=== PATIENT | female | born 1970 | race Caucasian/White ===

== ENCOUNTER 2022-08-17 20:25 | Emergency (ER) | payer MEDICARE, MEDICAID, SELFPAY ==
[2022-08-17 20:27] VITALS: PULSE 74; RESP 15; TEMP 36.2; O2SAT 96
[2022-08-17 21:51] VITALS: BMI 17.3
--- NOTE | 2022-08-17 22:07 | EX.ED.DYSGE1 ---
HPI History of Present Illness Chief Complaint: Weakness Detail of Chief Complaint: Weakness, poor p.o. intake Informant: patient and family Onset/Context/Timing Onset: Days Context: Gradual Onset Timing: Continuous Quality: Generalized weakness Location: Staying with daughter Current Severity: Moderate Maximum Severity: Moderate Worsened by: History of liver failure due to myelodysplastic syndrome. Relieved by: Nothing Associated Symptoms Associated Symptoms: Nausea, generalized weakness, weight loss Narrative Narrative: Patient is a 51-year-old woman with history of liver failure with jaundice due to MDS. She has never been seen at [facility]. There are no written reports available for any recent admission at [facility] or [place]. Able to obtain blood work. That was performed at [facility]. H&H on August 11 was 8.0 and 23.9. White count was 3.5. Platelet count was 376,000. Patient does admit to bruising easily. Daughter had to supplement history. Difficult to obtain much. Daughter states she has not voiced any complaint of headache, chest pain, shortness of breath or urinary symptoms. There is no evidence of recent admission using [facility]. Prior similar symptoms: Yes Recent Illness/Hospitalization: Yes PFSH PFSH Medical History no medical history no medical history (Documented in the HPI) Allergy/AdvReac Type Severity Reaction Status Date / Time ibuprofen [From Motrin] AdvReac Vomiting Verified 08/17/22 20:31 Social History (Updated 08/17/22 @ 22:[address] Clarence Oh MD) household members: none housing: other details: Presently staying with daughter who lives in [place]. Smoking Status: Former smoker details: No recent history of alcohol use ROS ROS ED Review of Systems ROS Unobtainable: due to mental status EXAM Physical Exam Const Vital Signs: 08/17/22 20:27 08/17/22 21:54 08/17/22 23:32 Temperature 97.2 F L Temperature Source Temporal Pulse Rate 74 Respiratory Rate 15 Respiratory Effort Normal Respiratory Pattern Normal Blood Pressure 90/64 Blood Pressure Mean 72 Pulse Ox 96 Oxygen Delivery Method Room Air Positive well developed and cachectic Constitutional Narrative: Patient is jaundiced. Patient does not appear well. General Appearance ED: well developed, cachectic and NAD; Negative for cyanotic, diaphoretic or pallor Nutritional Appearance: cachectic HEENT Reports dry mucous membranes HEENT Narrative: Gingiva is pale. Mouth ED: Yes dry mucous membranes Mouth: dry mucous membranes Eyes PERRL and EOMs intact bilaterally General Eye ED: Yes pale conjunctiva and scleral icterus Chest Wall inspection of chest normal and palpation of chest normal Resp normal respiratory effort and clear to auscultation bilaterally Cardio regular rate, regular rhythm, S1 normal heart sound, S2 normal heart sound and no murmurs GI non-tender and hepatosplenomegaly GI Narrative: Patient has shifting dullness and fluid wave consistent with ascites. Patient is noted to have bruising. Auscultation: hypoactive bowel sounds Back/Spine no CVA tenderness Thoracic Spine / Upper Back: Negative for thoracic spinal tenderness Lumbar Spine / Lower Back: Negative for lumbar spinal tenderness Extremity Extremity Narrative: There is bruising of the extremities. Neuro oriented x3, CN's II-XII intact bilaterally and no sensory deficits noted Neuro Narrative: Patient opens her eyes to verbal stimuli and does answer questions appropriately. Sensorium / Orientation: Negative for alert Psych Mood & Affect: depressed Skin No skin turgor normal General Skin Exam: jaundice; Negative for elasticity normal or pallor MDM MDM MDM Narrative Medical decision making narrative: Prior records are not available for review. Laboratory results from [facility] were obtained. Office visit was obtained. Problem list included renal failure, ascites, history of atrial for flutter, nonischemic cardiomyopathy, congestive heart failure, hepatocellular dysfunction, hypomagnesemia, hyponatremia, iron deficiency. There is remote history of splenic infarct. She also has portal hypertension. Patient does not appear well. Full work-up was obtained for metabolic infectious causes. CBC to evaluate if her hemoglobin is dropped significantly since she appears very pale. Because of the bruising PT/INR was obtained to assess for coagulopathy due to liver failure. Lab Data Attestation: I reviewed the patient's lab results. Lab results narrative: Comprehensive metabolic panel reveals sodium 131, potassium 5.8, chloride of 89 with a CO2 of 12 and anion gap of 30. BUN is 66 with a creatinine of 3.26. BUN to creatinine ratio is 20:1. Glucose is 64. Total bili is 9.8. AST and ALT of 535 and 236 respectively. Hemoglobin is 4.7 hematocrit of 14.7. Platelet count is 416 is in Labs: Laboratory Results - last 24 hr 08/17/22 08/17/22 08/17/22 23:16 23:16 23:16 WBC 7.3 RBC 1.54 L Hgb 4.7 L* Hct 14.7 L MCV 95.5 MCH 30.5 MCHC 32.0 RDW Std Deviation 51.7 H RDW Coeff of Anisa 15.3 H Plt Count 416 MPV 12.4 H Immature Gran % (Auto) 1.000 H Neut % (Auto) 64.5 Lymph % (Auto) 19.0 [place] % (Auto) 15.4 H Eos % (Auto) 0.0 Baso % (Auto) 0.1 Absolute Neuts (auto) 4.7 Absolute Lymphs (auto) 1.38 Nucleated RBC % 0.8 PT > 120.0 H INR > 19.5 H* Sodium 131 L Potassium 5.8 H Chloride 89 L Carbon Dioxide 12.0 L Anion Gap 30 H BUN 66 H Creatinine 3.26 H Estim Creat Clear Calc 15.82 Est GFR (MDRD) Af Amer 19 L Est GFR (MDRD) Non-Af 16 L BUN/Creatinine Ratio 20.2 H Glucose 64 L Calcium 9.0 Total Bilirubin 9.80 H AST 535 H ALT 236 H Alkaline Phosphatase 72 Total Protein 5.6 L Albumin 3.7 Globulin 1.9 L Albumin/Globulin Ratio 1.9 Urine Color Urine Clarity Urine pH Ur Specific [place] Urine Protein Urine Glucose (UA) Urine Ketones Urine Occult Blood Urine Nitrite Urine Bilirubin Urine Urobilinogen Ur Leukocyte Esterase Urine RBC Urine WBC Ur Squamous Epith Cells Amorphous Sediment Urine Bacteria Hyaline Casts Urine Mucus 08/18/22 00:20 WBC RBC Hgb Hct MCV MCH MCHC RDW Std Deviation RDW Coeff of Anisa Plt Count MPV Immature Gran % (Auto) Neut % (Auto) Lymph % (Auto) [place] % (Auto) Eos % (Auto) Baso % (Auto) Absolute Neuts (auto) Absolute Lymphs (auto) Nucleated RBC % PT INR Sodium Potassium Chloride Carbon Dioxide Anion Gap BUN Creatinine Estim Creat Clear Calc Est GFR (MDRD) Af Amer Est GFR (MDRD) Non-Af BUN/Creatinine Ratio Glucose Calcium Total Bilirubin AST ALT Alkaline Phosphatase Total Protein Albumin Globulin Albumin/Globulin Ratio Urine Color Adarsh Urine Clarity Clear Urine pH 5.0 Ur Specific [place] 1.025 Urine Protein 100 H Urine Glucose (UA) Normal Urine Ketones 15 H Urine Occult Blood 250 H Urine Nitrite Negative Urine Bilirubin 6 H Urine Urobilinogen 8 H Ur Leukocyte Esterase 25 H Urine RBC 10-25 SEEN Urine WBC 0-5 SEEN Ur Squamous Epith Cells 0-5 SEEN Amorphous Sediment 1+ Urine Bacteria 3+ Hyaline Casts 10-25 SEEN Urine Mucus 0 SEEN Treatment and Re-Evaluation :: At 0004 I was asked to see patient John. Nurse states she she has had a significant change. Patient is now mumbling. She is limp. Patient was transferred from wheelchair since she just use the restroom. Urine is adarsh in color. It does not appear clear. Ammonia level was ordered, Holder for accurate I's and O's, urine culture blood culture and lactate since patient has a high anion gap acidosis with a CO2 of 12 and anion gap of 30. Patient has mild hyperkalemia with mild hyponatremia and hyperchloremia. Patient has evidence of renal failure. Will attempt to access prior electrolyte panel from [facility] determine if this is a change. We will also need a BGT. I was informed by nursing staff BG T is 33 Repeat blood pressure is 80 systolic. Spoke with the oncologist on-call for for Dr. Louis at [facility]. His partner is not familiar with the patient. However after informing her of her history presentation laboratory studies she is in agreement that patient is in acute liver failure and hospice would be appropriate. The daughter who is with patient was informed of this. Will contact hospice. Patient now has a mild spontaneous nosebleed noted. Critical Care Time Critical Care Time: Yes Critical care time (excluding procedures): 30-74 minutes (31), Including time spent: (History, physical, documentation, review of outside records, phone conversation with oncologist on-call for Dr. Louis), Discussing w/Patient &/or Family/Engravings Polisher (Regarding patient's condition and discussion regarding CODE STATUS and hospice.), Discussing w/Consultants (Hospice nurse and physician), Arranging Admission or Transfer (Transfer to hospice) and Performing Direct Patient Care at Bedside Discharge Plan Triage Chief Complaint: Weakness ED Provider: Clarence Oh Dx/Rx/DC Orders Clinical Impression: Liver failure with hepatic coma, Acute anemia, Coagulopathy, High anion gap metabolic acidosis, Acute hyperkalemia, Acute hypotension, Acute renal failure, Hepatorenal syndrome, Jaundice, Ascites, Urinary tract infection, Epistaxis, Hypoglycemia without diagnosis of diabetes mellitus Primary Care Provider: Care Physician,No Primary Referrals: Care Physician,No Primary [Primary Care Provider] -
[2022-08-17 23:32] VITALS: BP 90/64
[2022-08-17 23:34] LABS: Absolute Lymphocyte Count 1.38 X10^3/uL (0.83-4.51); Absolute Neutrophil Count 4.7 X10^3/uL (2.0-7.7); Basophil# 0.01 X10^3/uL; Basophil% 0.1 % (0-1); Hematocrit 14.7 % (37-47); Hemoglobin 4.7 g/dL (12.0-15.0); Lymphocyte # 1.38 X10^3/ul (0.83-4.51); Mean Corpuscular Hgb 30.5 pg (27.0-32.0); Mean Corpuscular Volume 95.5 fL (81-99); Mean Platelet Vol. 12.4 fl (6.2-12.0); Monocyte# 1.12 X10^3/uL; Monocyte% 15.4 % (0-10); NRBC Flagged by Analyzer 0.8 % (0-5); Neutrophil # 4.69 X10^3/uL (2.7-7.7); Neutrophil % 64.5 % (47-70); POSITIVE COUNT YES; POSITIVE MORPHOLOGY YES; Platelet Count 416 K/mm3 (150-450); RBC Distribution Width CV 15.3 % (11.6-14.6); RBC Distribution Width SD 51.7 fl (35.1-43.9); Red Blood Count 1.54 M/mm3 (4.2-5.4); White Blood Count 7.3 K/mm3 (4.4-11.0)
[2022-08-17 23:45] LABS: ALB/GLOB Ratio 1.9 RATIO (0.9-2.4); AST(SGOT) 535 U/L (15-37); Alanine Aminotransfer ALT/SGPT 236 U/L (13-56); Albumin, Serum 3.7 g/dL (3.2-5.0); Alkaline Phosphatase 72 U/L (45-117); Anion Gap 30 (5-15); BUN 66 mg/dL (7-18); BUN/Creat Ratio 20.2 RATIO (10-20); Chloride 89 mmol/L (98-107); Creatinine, Serum 3.26 mg/dL (0.55-1.02); EST Glomerular Filtration Rate 16 mL/min (>60); Est Glom Filt Rate - Afr Amer 19 mL/min (>60); Estimated Creatinine Clearance 15.82 ml/min; Globulin 1.9 g/dL (2.2-4.2); Glucose 64 mg/dL (74-106); Potassium 5.8 mmol/L (3.5-5.1); Protein, Total 5.6 g/dL (6.4-8.2); Sodium Level 131 mmol/L (136-145)
[2022-08-18] MEDS: Dextrose 50%-Water 25 GM/50 ML DISP.SYRIN IV (00:18)
[2022-08-18 00:22] LABS: Differential Indicated SCAN CRITERIA MET
[2022-08-18 00:23] LABS: International Normalized Ratio > 19.5; Prothrombin Time (Protime)PT. > 120.0 SECONDS (11.7-14.9)
[2022-08-18 00:26] LABS: Mucous, Urine 0 SEEN /hpf (<or=2+)
[2022-08-18 00:29] LABS: Color, Urine Amber (Yellow); Glucose, Dipstick Normal (Normal); Ketone-Dipstick 15 mg/dl (Negative); Leukocyte Esterase-Dipstick 25 /ul (Negative); Nitrite-Dipstick Negative (Negative); Occult Blood-Urine 250 /ul (Negative); Protein-Dipstick 100 mg/dl (Negative); Specific Gravity, Urine 1.025 (1.002-1.030); Urine Bilirubin Dipstick 6 mg/dL (Negative); Urine Clarity Clear (Clear); Urine Urobilinogen 8 mg/dl (Normal)
--- NOTE | 2022-08-18 00:30 | ED.RN ---
pt was up in w/c to bathroom and brought back to room at 0001, pt was unresponsive initially, kings, vp business development present with pt's daughter and this nurse. Dr Oh informed of same. Pt assisted with Kings Arredondo and this nurse back to bed, blood sugar 33, this nurse placed temp degroot cathether, bp initially 68/39 pulse 73, pulse ox 96%, repeat bp 48/36 pulse ox 94% pulse 71, Alhaji Lucero, charge machine operator nurse administered D50 IV at 0018, at 0025 obtained core temp of 94.F, pt in trendelenburg postition due to low bp, pt insisted on sitting up and attempted x2 and fell back on pillow.
[2022-08-18 00:35] LABS: Amorphous Sediment 1+; Bacteria 3+ /hpf (None Seen); Red Blood Cells-Urine 10-25 SEEN /hpf (0-5); Squamous Epithelial Cells - UA 0-5 SEEN /hpf (5-10); White Blood Cells 0-5 SEEN /hpf (0-5)
[2022-08-18 00:36] LABS: Hyaline Cast 10-25 SEEN /lpf (0-5)
[2022-08-18 00:40] VITALS: BP 58/34; PULSE 66; RESP 32; TEMP 34.6; O2SAT 96
[2022-08-18] MEDS: Dext 5%-0.45% NS 1,000 ML 100 ML IV (00:41)
[2022-08-18] MEDS: HYDROmorphone 0.5 MG/0.5 ML SYRINGE IV ×2 (00:46→00:59)
--- NOTE | 2022-08-18 00:49 | NURSING ---
PT REFERRED TO HOSPICE AND WILL BE ACCESSED BY A PL SQL DEVELOPER FOR ADMISSION SOON.
[2022-08-18 00:51] LABS: Burr Cells 1+; Polychromasia 2+
[2022-08-18 00:52] LABS: Acanthocytes 2+; Anisocytosis 1+; Ovalocyte RARE
[2022-08-18 00:53] LABS: Poikilocytosis 1+
[2022-08-18] MEDS: LORazepam 2 MG/ML Syringe IV (00:59)
--- NOTE | 2022-08-18 01:17 | ED.RN ---
pt's family, daughter and granddaughter at bedside with pt. Talia, bobbin dumper, also providing comfort to pt.
[2022-08-18 04:28] VITALS: RESP 22
[2022-08-18 05:17] VITALS: BP 80/66; PULSE 53; RESP 18; TEMP 34.3
[2022-08-18] MEDS: LORazepam 2 MG/ML Syringe 1 MG IV (05:20)
[2022-08-18 05:30] VITALS: BP 42/26; PULSE 55; RESP 18; TEMP 33.9
[2022-08-18 05:35] VITALS: BP 44/28; PULSE 21; RESP 8; TEMP 33.8
[2022-08-18 05:45] VITALS: PULSE 0; RESP 0; TEMP 33.7
--- NOTE | 2022-08-18 06:09 | ED.RN ---
DR. COOPER calleld time of 05:45, family at bedside with pt. Dr. Cooper and this nurse exited the room to allow family time with .
--- NOTE | 2022-08-18 07:11 | ED.RN ---
at the Request of [facility], the only medication patient received in the last hour of life was Ativan 1mg IV per MAR. No IV medications received in the last hour of life.
[2022-08-18 07:25] LABS: Bedside Glucose 33 mg/dL (74-106)
[2022-08-18 14:05] LABS: Pathologist Review Reviewed
== END 2022-08-18 08:30 ==
PROVIDERS: Emergency Provider Emergency Medicine; Visit Provider Emergency Medicine
DX: K72.91 Hepatic failure, unspecified with coma (principal); K76.7 Hepatorenal syndrome; N17.9 Acute kidney failure, unspecified; Z87.891 Personal history of nicotine dependence; R04.0 Epistaxis; E16.2 Hypoglycemia, unspecified; E87.5 Hyperkalemia; E87.20 Acidosis, unspecified; N39.0 Urinary tract infection, site not specified; D64.9 Anemia, unspecified; I95.9 Hypotension, unspecified; R18.8 Other ascites
CPT/HCPCS: 36556; 51702; 80053; 81001; 82962; 85025; 85610; 86850; 86900; 86901; 87086; 96361; 96365; 96366; 96375; 96376; 99283; J7040; A4216; C1751; J7799